=== PATIENT | female | born 1960 | race Caucasian/White ===

== ENCOUNTER → 2019-02-15 | Day surgery (SDC) | payer BC ==
[~2019-02-15] MED LIST: Lactated Ringers 1,000 ML IV ONE; Propofol 200 MG/20 ML SDV IV ONE
[2019-02-15 12:37] VITALS: BP 117/71; PULSE 60
--- NOTE | 2019-02-18 08:42 | OR ---
DATE OF OPERATION: 02/15/2019 PREOPERATIVE DIAGNOSIS: FAMILY HISTORY OF COLON CARCINOMA. POSTOPERATIVE DIAGNOSIS: DIAGNOSIS SAME PROCEDURE SCREENING COLONOSCOPY. SURGEON: Ran Esteban MD PROCEDURE: SCREENING COLONOSCOPY. ANESTHESIA: MAC via PROJECT DEVELOPMENT COORDINATOR. COMPLICATIONS: None. SPECIMEN: None. FINDINGS: Normal full length colonoscopy. RECOMMENDATIONS: Follow colonoscopy every 5 years. INDICATIONS: The patient has a family history of colon cancer. It has been 5 years since her last scope. DESCRIPTION OF PROCEDURE: The patient was prepped and draped, placed in left lateral decubitus position. A lubricated Olympus colonoscope was inserted and with relative ease, advanced to the cecum, the patient is fairly tortuous in the sigmoid, but we passed safely and easily without problem. The bowel prep was excellent. Upon withdrawal of the scope throughout the entire length of the colon, I could find no signs of any polyps, mass, ulceration, or bleeding sites. No vascular abnormalities or signs of colitis. The patient has no significant diverticula. The rectal vault was benign. Retroflexion scope in the rectum showed no anal lesions. Air was suctioned and scope removed without complication. SILVIO/CARLOS /[id number]
== END ==
LOC: CC.SDS 09:55
PROVIDERS: ATTEND Family Medicine
DX: Z12.11 Encounter for screening for malignant neoplasm of colon (principal); K63.89 Other specified diseases of intestine; E04.1 Nontoxic single thyroid nodule; E55.9 Vitamin D deficiency, unspecified; F41.9 Anxiety disorder, unspecified; G25.81 Restless legs syndrome; M19.90 Unspecified osteoarthritis, unspecified site; Z88.8 Allergy status to other drugs, medicaments and biological substances; Z87.891 Personal history of nicotine dependence; Z80.0 Family history of malignant neoplasm of digestive organs; Z79.82 Long term (current) use of aspirin; Z79.899 Other long term (current) drug therapy
CPT/HCPCS: 45378; J2704; J7120; G0121

== ENCOUNTER 2024-03-08 09:47 | Day surgery (SDC) | payer MEDICARE ==
[2024-03-08] MEDS: Lactated Ringers 1,000 ML IV SCH (10:03)
[2024-03-08] MEDS ORDERED: fentaNYL 50 MCG/ML SDV ONE (10:25)
[2024-03-08] MEDS ORDERED: Ketamine 200 MG/20 ML MDV ONE (10:25)
[2024-03-08] MEDS ORDERED: Propofol 200 MG/20 ML SDV ONE (10:25)
[2024-03-08 11:38] VITALS: BP 95/62; PULSE 64
== END 2024-03-08 11:45 | disposition home or self-care (01) ==
LOC: CC.SDS 09:47
PROVIDERS: ATTEND Family Medicine
DX: Z12.11 Encounter for screening for malignant neoplasm of colon (principal); Z86.010 Personal history of colon polyps; F41.9 Anxiety disorder, unspecified; Z79.899 Other long term (current) drug therapy
CPT/HCPCS: J2704; J3010; J3490; J7120